=== PATIENT | female | born 1975 ===

== ENCOUNTER 2016-07-01 18:55 | Emergency (ER) | payer SELFPAY ==
[2016-07-01 18:55] VITALS: BMI 23.4
[2016-07-01 19:09] VITALS: BP 112/61; PULSE 77; RESP 18; TEMP 98.1; O2SAT 99
--- NOTE | 2016-07-01 19:32 | C.PDOC ---
History Of Present Illness 40 yr old female presents to the ER stating since April she has had right knee pain. States she hears cracking and is worse with walking. Patient reports she has tried some exercising to relieve the pain but the pain persists. Patient denies trauma, injury, abdominal pain, back pain, change in sensations, weakness or numbness. 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 member ) History/Exam Limitations: language barrier Onset/Duration Of Symptoms: Persistent (Approx 2 months ) Past Medical History Reviewed: Historical Data, Nursing Documentation, Vital Signs Vital Signs: Last Vital Signs Temp 98.1 F 07/01/16 19:06 Pulse 77 07/01/16 19:06 Resp 18 07/01/16 19:06 BP 112/61 07/01/16 19:06 Pulse Ox 99 07/01/16 20:10 Family History: States: No Known Family Hx - Social History Hx Tobacco Use: No Hx Alcohol Use: No Hx Substance Use: No - Immunization History Hx Tetanus Toxoid Vaccination: No Hx Influenza Vaccination: No Hx Pneumococcal Vaccination: No Review Of Systems Except As Marked, All Systems Reviewed And Found Negative. Gastrointestinal: Negative for: Abdominal Pain Musculoskeletal: Positive for: Other ((+) Right knee pain ). Negative for: Back Pain Neurological: Negative for: Weakness, Numbness Physical Exam - Physical Exam Appears: Well, Non-toxic, No Acute Distress Skin: Warm, Dry, No Rash Head: Atraumatic, Normacephalic Eye(s): bilateral: Normal Inspection, EOMI Nose: Normal Oral Mucosa: Moist Chest: Symmetrical Respiratory: No Accessory Muscle Use Extremity: Normal ROM, Tenderness (Right Knee - Tenderness to the medial asoect of the knee, along the meniscus. ), No Calf Tenderness, Capillary Refill (<2 sec ), No Deformity, No Swelling Extremity: Bilateral: Atraumatic, Normal Color And Temperature Pulses: Left Dorsalis Pedis: Normal, Right Dorsalis Pedis: Normal Neurological/Psych: Oriented x3, Normal Speech, Normal Motor, Normal Sensation Gait: Steady ED Course And Treatment O2 Sat by Pulse Oximetry: 99 - Other Rad X-Ray - Right Knee X-Ray: Interpreted by Me, Viewed By Me Interpretation: No fractures. No dislocations. Progress Note: Knee brace applied by biodiesel production technician. Patient advised to follow up with the orthopedist in 1-2 days for further evaluation. Medical Decision Making Medical Decision Making: PLAN: * X-Ray - Right Knee Disposition - Disposition Referrals: at [facility] [Outside] Matteo Goncalves III, MD [Staff Provider] - Disposition: HOME/ ROUTINE Disposition Time: 20:09 Condition: STABLE Additional Instructions: Follow up with your primary medical doctor or clinic in 2-5 days for further evaluation. Return to the emergency department at any time if symptoms persist or worsen. Instructions: Knee Sprain (ED) - Clinical Impression Clinical Impression: Knee pain - PA / ASSOCIATE ATTORNEY / Resident Statement MD/DO has reviewed & agrees with the documentation as recorded. - Scribe Statement The provider has reviewed the documentation as recorded by the Scribe Lexus Porras All medical record entries made by the Scribe were at my direction and personally dictated by me. I have reviewed the chart and agree that the record accurately reflects my personal performance of the history, physical exam, medical decision making, and the department course for this patient. I have also personally directed, reviewed, and agree with the discharge instructions and disposition.
--- NOTE | 2016-07-02 08:18 | RAD ---
PROCEDURE: Right Knee Radiographs. HISTORY: pain COMPARISON: None. FINDINGS: BONES: Normal. No fracture. JOINTS: Normal. No osteoarthritis. JOINT EFFUSION: None. OTHER FINDINGS: None. IMPRESSION: Normal radiographs of the right knee.
== END 2016-07-01 20:24 | disposition home or self-care (01) ==
LOC: C.ER 18:55
DX: M25.561 Pain in right knee (principal)

== ENCOUNTER 2016-11-09 18:53 | Emergency (ER) | payer SELFPAY ==
[2016-11-09 18:54] VITALS: BMI 23.4
[2016-11-09 20:32] VITALS: TEMP 98.1; O2SAT 98
--- NOTE | 2016-11-09 22:40 | CT ---
EXAM: CT Head Without Intravenous Contrast EXAM DATE/TIME: 11/09/2016 9:04 PM CLINICAL HISTORY: 40 years old, female; Condition or disease; Headache; Additional info: Pain TECHNIQUE: Axial computed tomography images of the head/brain without intravenous contrast. All CT scans this facility use one or more dose reduction techniques, viz.: automated exposure control; ma/kV adjustment per patient size (including targeted exams where dose is matched to indication; i.e. head); or iterative reconstruction technique. COMPARISON: No relevant prior studies available. FINDINGS: BRAIN: No significant acute abnormality identified. No acute hemorrhage seen within the brain. No acute extra-axial fluid collections visualized. No evidence of significant mass effect within the brain. Normal blackburn-white matter differentiation. VENTRICLES: No evidence of significant hydrocephalus. BONES/JOINTS: No acute fractures or other acute bony abnormality noted. SOFT TISSUES: No acute abnormality of the visualized soft tissues is seen. SINUSES: Visualized paranasal sinuses appear clear. MASTOID AIR CELLS: Mastoid air cells appear clear. IMPRESSION: - No acute findings seen within the brain. - See above for remaining findings.
[2016-11-09 22:45] VITALS: BP 122/70; PULSE 74; RESP 20
--- NOTE | 2016-11-09 22:46 | C.PDOC ---
History Of Present Illness 40 year old female with a history of migraines presents to the ED with complaints of headache for four days. Patient states the location of this headache is different then her usual migraines - in the back of her head. No relief from OTC medicines. She did not take medicine today. Denies nausea, vomiting, fever, or visual changes. 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 ) History/Exam Limitations: no limitations Onset/Duration Of Symptoms: Days (4 days ) Current Symptoms Are (Timing): Still Present Quality: "Pain" Preceeding Symptoms: None Recent travel outside of the [place]: No Past Medical History Reviewed: Historical Data, Nursing Documentation, Vital Signs Vital Signs: Last Vital Signs Temp 98.1 F 11/09/16 20:26 Pulse 74 11/09/16 22:44 Resp 20 11/09/16 22:44 BP 122/70 11/09/16 22:44 Pulse Ox 98 11/09/16 23:21 Family History: States: Unknown Family Hx - Social History Hx Tobacco Use: No Hx Alcohol Use: Yes Hx Substance Use: No - Immunization History Hx Tetanus Toxoid Vaccination: No Hx Influenza Vaccination: No Hx Pneumococcal Vaccination: No Review Of Systems Constitutional: Negative for: Fever, Chills Eyes: Negative for: Vision Change Cardiovascular: Negative for: Chest Pain, Palpitations Respiratory: Negative for: Cough, Shortness of Breath Gastrointestinal: Negative for: Nausea, Vomiting, Abdominal Pain, Diarrhea Neurological: Positive for: Headache. Negative for: Weakness, Numbness, Dizziness Physical Exam - Physical Exam Appears: Non-toxic, No Acute Distress Skin: Warm, Dry Head: Atraumatic, Normacephalic, No Tenderness, No Swelling, No Abrasion, No Laceration Eye(s): bilateral: Normal Inspection, PERRL, EOMI Ear(s): Bilateral: Normal Nose: Normal, No Discharge Oral Mucosa: Moist Throat: Normal, No Erythema, No Exudate Neck: Normal ROM, Supple ((-) menigismus) Chest: Symmetrical, No Deformity Cardiovascular: Rhythm Regular, No Murmur Respiratory: Normal Breath Sounds, No Rales, No Rhonchi, No Wheezing Gastrointestinal/Abdominal: Soft, No Tenderness, No Distention, No Guarding, No Rebound Neurological/Psych: Oriented x3, Normal Speech, Normal Cognition, Normal Cranial Nerves (2-12 grossly intact), Normal Motor, Normal Sensation, Other (No focal deficits ) Gait: Steady ED Course And Treatment O2 Sat by Pulse Oximetry: 98 (room air ) Progress Note: Head CT was ordered and patient was given Toradol and Reglan. Patient is resting comfortably, is tolerating PO, and no longer has headache, neurologic deficit, photophobia, rash, fever, or nuchal rigidity. Patient was instructed to follow up with physician/clinic in 1-2 days. Disposition - Disposition Referrals: [facility] at [facility] [Outside] Disposition: HOME/ ROUTINE Disposition Time: 22:46 Condition: GOOD Additional Instructions: Vaya a bennett mdico o la clnica en 1-3 [place] sin falta, para mas evaluacin. [place] los medicamentos dewayne indicado. Volver a la sarah de emergencia en cualquier momento si los sntomas persisten o empeoran. Prescriptions: Naproxen [Naprosyn] 1 tab PO BID PRN #20 tab PRN Reason: Pain Instructions: Acute Headache (ED) Forms: [employer] (Bahraini) Print Language: MALAGASY - Clinical Impression Clinical Impression: Headache - PA / LOGISTICS/SHIPPER / Resident Statement MD/DO has reviewed & agrees with the documentation as recorded. - Scribe Statement The provider has reviewed the documentation as recorded by the Scribe Alison Gonzales All medical record entries made by the Scribe were at my direction and personally dictated by me. I have reviewed the chart and agree that the record accurately reflects my personal performance of the history, physical exam, medical decision making, and the department course for this patient. I have also personally directed, reviewed, and agree with the discharge instructions and disposition.
== END 2016-11-09 22:51 | disposition home or self-care (01) ==
LOC: C.ER 18:53
DX: R51 Headache (principal)
CPT/HCPCS: 70450; 96372; 99284; J1885

== ENCOUNTER 2017-01-06 19:13 | Emergency (ER) | payer OTHER ==
[2017-01-06 19:13] VITALS: BMI 23.4
[2017-01-06 19:25] VITALS: RESP 20
[2017-01-06] MEDS ORDERED: Iohexol 240 (50 ml) PO ONE (19:47)
--- NOTE | 2017-01-06 19:49 | C.PDOC ---
History Of Present Illness Patient gave a history of left lower quadrant abdominal pain for 2 weeks. Denies any other symptom. Chief Complaint (Nursing): Abdominal Pain History Per: Patient History/Exam Limitations: no limitations Onset/Duration Of Symptoms: Days Current Symptoms Are (Timing): Still Present Severity: Moderate Pain Scale Rating Of: 3 Location Of Pain/Discomfort: LLQ Radiation Of Pain To:: None Quality Of Discomfort: Aching Associated Symptoms: denies: Fever, Chills, Nausea, Vomiting, Diarrhea, Constipation, Urinary Symptoms Exacerbating Factors: None Alleviating Factors: None Last Bowel Movement: Today Recent travel outside of the [place]: No Past Medical History Vital Signs: Last Vital Signs Temp 98 F 01/06/17 22:57 Pulse 78 01/06/17 22:57 Resp 20 01/06/17 22:57 BP 121/70 01/06/17 22:57 Pulse Ox 99 01/06/17 22:57 - Medical History PMH: No Chronic Diseases Surgical History: No Surg Hx Family History: States: Unknown Family Hx - Social History Hx Tobacco Use: No Hx Alcohol Use: Yes Hx Substance Use: No - Immunization History Hx Tetanus Toxoid Vaccination: No Hx Influenza Vaccination: No Hx Pneumococcal Vaccination: No Review Of Systems Constitutional: Negative for: Fever, Chills, Sweats Cardiovascular: Negative for: Chest Pain, Palpitations, Orthopnea Respiratory: Negative for: Cough, Shortness of Breath, Hemoptysis Gastrointestinal: Positive for: Abdominal Pain. Negative for: Nausea, Vomiting , Diarrhea Genitourinary: Negative for: Dysuria, Frequency, Incontinence, Hematuria, Vaginal Discharge, Vaginal Bleeding Skin: Negative for: Rash Neurological: Negative for: Weakness, Numbness Psych: Negative for: Anxiety, Depression Physical Exam - Physical Exam Appears: Well, Non-toxic, No Acute Distress Skin: Normal Color, Warm, Dry Eye(s): bilateral: Normal Inspection, PERRL, EOMI Nose: Normal Throat: Normal Neck: Normal Chest: Symmetrical, No Deformity, No Tenderness, No Ecchymosis Cardiovascular: Rhythm Regular, No Murmur, No JVD Respiratory: Normal Breath Sounds, No Rhonchi, No Wheezing Gastrointestinal/Abdominal: Soft, Tenderness (Left lower quadrant area), No Organomegaly, No Mass, No Distention, No Guarding, No Rebound, No Hernia Back: Normal Inspection Extremity: Normal ROM ED Course And Treatment - Laboratory Results Result Diagrams: 01/06/17 20:02 01/06/17 20:02 O2 Sat by Pulse Oximetry: 98 Disposition Counseled Patient/Family Regarding: Diagnosis - Disposition Referrals: [facility] [Outside] Disposition: HOME/ ROUTINE Disposition Time: 22:50 Condition: STABLE Prescriptions: Naproxen 375 mg PO TIDPC #20 tablet Instructions: Ovarian Cyst (ED) Forms: Gen Discharge Inst Macanese, [facility] [employer] (Upper Sorbian) Print Language: MARTINIQUAIS - POA Present On Arrival: None - Clinical Impression Clinical Impression: Ovarian cyst, Abdominal pain
[2017-01-06] MEDS ORDERED: Iohexol 240 (50 ml) ONE (19:56)
[2017-01-06 20:10] LABS: BASO % 0.5 % (0.0-2.0); EOS # 0.2 K/uL (0.0-0.7); EOS % 1.7 % (0.0-4.0); HEMATOCRIT 36.9 % (34.0-47.0); LYMPH # 3.5 K/uL (1.0-4.3); LYMPH % 38.8 % (20.0-40.0); MEAN CELL VOLUME 89.6 fL (81.0-99.0); MEAN CORPUSCULAR HEMOGLOBIN 29.3 pg (27.0-31.0); MEAN CORPUSCULAR HGB CONC 32.7 g/dL (33.0-37.0); MEAN PLATELET VOLUME 8.7 fL (7.2-11.7); MONO # 0.7 K/uL (0.0-0.8); MONO % 7.8 % (0.0-10.0); NRBC % 0.1 % (0.0-2.0); RED CELL DISTRIBUTION WIDTH 13.4 % (11.5-14.5); WHITE BLOOD COUNT 8.9 K/uL (4.8-10.8)
[2017-01-06 20:12] LABS: RBC URINE < 1 /hpf (0-3); URINE BACTERIA OCC (<OCC); URINE BILIRUBIN NEGATIVE (NEGATIVE); URINE BLOOD NEGATIVE (NEGATIVE); URINE COLOR Straw (YELLOW); URINE GLUCOSE (UA) NORMAL (Normal); URINE KETONE NEGATIVE (NEGATIVE); URINE LEUKOCYTE ESTERASE NEG Leu/uL (Negative); URINE PROTEIN NEGATIVE (NEGATIVE); URINE UROBILINOGEN NORMAL mg/dL (0.2-1.0); WBC URINE 1 /hpf (0-5)
[2017-01-06 20:21] LABS: ALKALINE PHOSPHATASE 58 U/L (38-126); ALT/SGPT 43 U/L (9-52); AST/SGOT 23 U/L (14-36); BILIRUBIN,TOTAL 0.3 mg/dL (0.2-1.3); BLOOD UREA NITROGEN 13 mg/dL (7-17); CARBON DIOXIDE 25 mmol/L (22-30); CHLORIDE 100 mmol/L (98-107); GFR AFRICAN-AMERICAN > 60; GLUCOSE,RANDOM 80 mg/dL (65-105); POTASSIUM 3.4 mmol/L (3.6-5.2); SODIUM 134 mmol/L (132-148); TOTAL PROTEIN 8.4 g/dL (6.3-8.3)
[2017-01-06 20:27] LABS: ALB/GLOB RATIO 1.1 (1.0-2.1)
--- NOTE | 2017-01-06 22:01 | CT ---
EXAM: CT Abdomen and Pelvis With Intravenous Contrast CLINICAL HISTORY: 41 years old, female; Pain; Abdominal pain; Flank; Left lower quadrant (llq); Additional info: Llq abd pain TECHNIQUE: Axial computed tomography images of the abdomen and pelvis with intravenous contrast. All CT scans at this facility use one or more dose reduction techniques, viz.: automated exposure control; ma/kV adjustment per patient size (including targeted exams where dose is matched to indication; i.e. head); or iterative reconstruction technique. Coronal and sagittal reformatted images were created and reviewed. CONTRAST: 100 mL of OMNIPAQUE 300 administered intravenously. COMPARISON: No relevant prior studies available. FINDINGS: Limitations: Motion artifact - mild. Lower thorax: Probable small hiatal hernia. ABDOMEN: Liver: Unremarkable. No mass. Gallbladder and bile ducts: No calcified stones. No ductal dilation. Pancreas: No ductal dilation. No mass. Spleen: No splenomegaly. Adrenals: No mass. Kidneys and ureters: No mass. No hydronephrosis. Stomach and bowel: Moderate amount of stool within colon. No definite mural thickening. No obstruction. Appendix: Normal caliber. No definite inflammation. PELVIS: Bladder: Unremarkable. Reproductive: 2.3 x 2.2 by 1.8 cm peripherally enhancing hypodensity with crenulated margins within RIGHT ovary. ABDOMEN and PELVIS: Intraperitoneal space: Trace free fluid within pelvis. No free air. Bones/joints: No acute fracture. Soft tissues: Tiny umbilical hernia containing fat. Vasculature: Unremarkable. No aneurysm. Lymph nodes: No pathologically enlarged lymph nodes. IMPRESSION: 1. Involuting or ruptured RIGHT ovarian follicle/cyst. 2. Incidental/non-acute findings are described above.
[2017-01-06 22:58] VITALS: BP 121/70; PULSE 78; TEMP 98
[2017-01-07 00:52] VITALS: O2SAT 98
== END 2017-01-06 22:59 | disposition home or self-care (01) ==
LOC: C.ER 19:13
DX: N83.209 Unspecified ovarian cyst, unspecified side (principal); R10.32 Left lower quadrant pain
CPT/HCPCS: 74177; 80053; 81001; 83690; 84703; 85025; 96374; 99285; J1885; Q9966

== ENCOUNTER 2017-03-13 17:06 | Emergency (ER) | payer OTHER ==
[2017-03-13 17:06] VITALS: BMI 23.4
[2017-03-13 17:12] VITALS: TEMP 98
[2017-03-13 19:48] VITALS: BP 101/62; PULSE 83; RESP 16; O2SAT 98
--- NOTE | 2017-03-13 21:37 | C.PDOC ---
History Of Present Illness 41 y/o female presents to the ER complaining of rectal pain which has been present for 1 month. Patient states that the pain is constant and bowel movements do not change the intensity of the pain. She admits that she is pushing with bowel movement and she is having hard stool. Of note, patient states that she had a normal bowel movement today. Patient denies that she has any rectal bleeding, discharge, and abdominal pain. Patient denies having history of hemorrhoids. Time Seen by Provider: 03/13/17 18:30 Chief Complaint (Nursing): GI Problem History Per: Patient, Family History/Exam Limitations: no limitations Onset/Duration Of Symptoms: Days Current Symptoms Are (Timing): Still Present Severity: Moderate Past Medical History Reviewed: Historical Data, Nursing Documentation, Vital Signs Vital Signs: Last Vital Signs Temp 98.0 F 03/13/17 17:10 Pulse 83 03/13/17 19:48 Resp 16 03/13/17 19:48 BP 101/62 03/13/17 19:48 Pulse Ox 98 03/13/17 21:40 - Medical History PMH: No Chronic Diseases Surgical History: No Surg Hx Family History: States: No Known Family Hx - Social History Hx Tobacco Use: No Hx Alcohol Use: No Hx Substance Use: No - Immunization History Hx Tetanus Toxoid Vaccination: No Hx Influenza Vaccination: No Hx Pneumococcal Vaccination: No Review Of Systems Gastrointestinal: Positive for: Rectal Pain. Negative for: Abdominal Pain Genitourinary: Negative for: Hematuria, Vaginal Discharge Physical Exam - Physical Exam Appears: Non-toxic, No Acute Distress Skin: Normal Color, Warm Head: Atraumatic, Normacephalic Eye(s): bilateral: Normal Inspection, PERRL, EOMI Nose: Normal Oral Mucosa: Moist Neck: Normal, Normal ROM, Supple Chest: Symmetrical Cardiovascular: Rhythm Regular Respiratory: Normal Breath Sounds, No Accessory Muscle Use, No Rales, No Rhonchi , No Wheezing Gastrointestinal/Abdominal: Normal Exam, Soft, No Tenderness Rectal: Rectal Tone, No Blood Streaked Stool, No Hemorrhoids, No Mass, Tenderness (internal rectal tenderness) Extremity: Normal ROM Neurological/Psych: Oriented x3, Normal Speech, Normal Cognition ED Course And Treatment O2 Sat by Pulse Oximetry: 98 Progress Note: Discussed with pt diet changes , follow up with GI for possible scope, and return to ER if symtpoms persist or worsen. Case discussed with Dr Mo, agreeed upon plan and treatment. Disposition - Disposition Referrals: Fredis Garsia MD [Staff Provider] - Disposition: HOME/ ROUTINE Disposition Time: 17:00 Condition: STABLE Additional Instructions: Vaya a bennett mdico o la clnica en 1-3 [place] sin falta, para mas evaluacin. [place] los medicamentos dewayne indicado. Volver a la sarah de emergencia en cualquier momento si los sntomas persisten o empeoran. Prescriptions: Docusate [Colace] 100 mg PO BID #14 cap Hydrocortisone 2.5% (Rectal) [Anusol-HC] 1 applic TOP BID #1 tube Instructions: Rectal Pain (ED) Forms: [employer] (Spanish) Print Language: OMANI - Clinical Impression Clinical Impression: Rectal pain - PA / URINALYSIS TECHNICIAN / Resident Statement MD/DO has reviewed & agrees with the documentation as recorded. - Scribe Statement The provider has reviewed the documentation as recorded by the Scribe Cecily Woodruffq Provider Attestation All medical record entries made by the Scribe were at my direction and personally dictated by me. I have reviewed the chart and agree that the record accurately reflects my personal performance of the history, physical exam, medical decision making, and the department course for this patient. I have also personally directed, reviewed, and agree with the discharge instructions and disposition.
== END 2017-03-13 19:50 | disposition home or self-care (01) ==
LOC: C.ER 17:06
DX: K62.89 Other specified diseases of anus and rectum (principal)

== ENCOUNTER 2017-05-05 07:17 | Day surgery (SDC) | payer OTHER ==
[2017-05-05] MEDS ORDERED: Propofol 10 mg/ml Inj (20 ML) ONE (09:02)
[2017-05-05] MEDS ORDERED: Lidocaine Hydrochloride 5 ML INJ ONE (09:02)
--- NOTE | 2017-05-05 09:05 | CP.SDSHP ---
Same Day Surgery H & P - History Proposed Procedure: colonoscopy Pre-Op Diagnosis: constipation - Previous Medical/Surgical History Comments: None Previous Surgical History: None - Allergies Allergies: Allergies No Known Allergies Allergy (Verified 03/13/17 17:12) - Current Medications Current Medications: none - Physical Exam General Appearance: wdwn nad Vital Signs: Vital Signs 05/05/17 07:48 Temperature 98.3 F Pulse Rate 78 Respiratory 16 Rate Blood Pressure 107/50 L O2 Sat by Pulse 98 Oximetry Mental Status: Alert & Oriented x3 Heart: WNL Lungs: WNL GI: WNL - {Optional Preform as Required} Abdomen: WNL - Impression Impression: constipation Pt. Evaluated Today:Candidate for Anesthesia & Procedure: Yes - Date & Time Date: 05/05/17 Time: 09:05 Short Stay Discharge - Short Stay Discharge Admitting Diagnosis/Reason for Visit: CONSTIPATION Disposition: HOME/ ROUTINE
[2017-05-05 09:07] VITALS: O2SAT 100
[2017-05-05 10:30] VITALS: BP 106/54; PULSE 62; RESP 14; TEMP 97.2
== END 2017-05-05 10:25 | disposition home or self-care (01) ==
LOC: C.ENDO 07:17
PROVIDERS: ATTEND Internal Medicine Gastroenterology
DX: K62.1 Rectal polyp (principal); K59.00 Constipation, unspecified; K64.0 First degree hemorrhoids
CPT/HCPCS: 45385; 84703; 88305; J2704

== ENCOUNTER 2017-07-06 19:28 | Emergency (ER) | payer SELFPAY ==
[2017-07-06 19:28] VITALS: BMI 23.4
[2017-07-06 20:27] VITALS: BP 102/62; PULSE 70; RESP 20; TEMP 98; O2SAT 100
--- NOTE | 2017-07-06 20:55 | C.PDOC ---
History Of Present Illness 41 year old female presents to ED with complaints of left upper back pain for about 4 weeks and 2 week history of sore throat. She states pain is aching and intermittent episodes. She takes Tylenol with relief, but pain has persisted. Denies any fever, injury, numbness, nausea, vomiting, cough, abdominal pain or urinary symptoms. Time Seen by Provider: 07/06/17 20:26 Chief Complaint (Nursing): Back Pain History Per: Patient History/Exam Limitations: no limitations Onset/Duration Of Symptoms: Days, Intermittent Episodes Current Symptoms Are (Timing): Still Present Severity: Mild Past Medical History Reviewed: Historical Data, Nursing Documentation, Vital Signs Vital Signs: Last Vital Signs Temp 98.0 F 07/06/17 20:23 Pulse 70 07/06/17 20:23 Resp 20 07/06/17 20:23 BP 102/62 07/06/17 20:23 Pulse Ox 100 07/06/17 21:55 - Medical History PMH: No Chronic Diseases Surgical History: No Surg Hx Family History: States: Unknown Family Hx - Social History Hx Tobacco Use: No Hx Alcohol Use: No Hx Substance Use: No - Immunization History Hx Tetanus Toxoid Vaccination: No Hx Influenza Vaccination: No Hx Pneumococcal Vaccination: No Review Of Systems Constitutional: Negative for: Fever ENT: Positive for: Throat Pain. Negative for: Ear Pain Cardiovascular: Negative for: Chest Pain, Palpitations Respiratory: Negative for: Cough, Shortness of Breath Gastrointestinal: Negative for: Abdominal Pain Musculoskeletal: Positive for: Back Pain Skin: Negative for: Rash Neurological: Negative for: Headache, Dizziness Physical Exam - Physical Exam Appears: Non-toxic, No Acute Distress Skin: Warm, Dry, No Rash, No Ecchymosis Head: Atraumatic, Normacephalic Eye(s): bilateral: Normal Inspection, EOMI Oral Mucosa: Moist Throat: Erythema (post nasal drip cobblestoning appearance), No Exudate, No Drooling Neck: Normal ROM Chest: Symmetrical Cardiovascular: Rhythm Regular, No Murmur Respiratory: Normal Breath Sounds, No Accessory Muscle Use, No Wheezing Back: Normal Inspection (no rash), No Vertebral Tenderness, No Decreased ROM, Paraspinal Tenderness (mild tenderness to left side thoracic to lumbar area), No Straight Leg Raising Extremity: Bilateral: Atraumatic, Normal ROM Neurological/Psych: Oriented x3, Normal Speech Gait: Steady ED Course And Treatment O2 Sat by Pulse Oximetry: 100 Medical Decision Making Medical Decision Making: Impression: upper back pain and sore throat Plan: * UA * Tylenol * Flexeril Progress: UA shows no leukocytes, or nitrates or blood. Patient re-evaluated and states she still has some pain. Toradol IM ordered. On re-eval patient is now feeling better, she feels comfortable going home. Recommend analgesics for back pain. Explain throat pain may be allergy related and from post nasal drip. Recommend antihistamine Disposition Counseled Patient/Family Regarding: Diagnosis, Need For Followup, Rx Given - Disposition Referrals: [facility] [Outside] Disposition: HOME/ ROUTINE Disposition Time: 21:53 Condition: IMPROVED Additional Instructions: [facility] Apply heat to area 15 minutes three times a day. Take Motrin as needed for pain every 6 hours, with food to not upset stomach. Take Flexeril for muscle pain and spasm, caution can cause drowsiness. Follow up with orthopedic if pain persists over one week. Prescripcin enviada a la farmacia Rey Aplique calor al donita 15 minutos sabas veces al da. [place] Motrin cuando sea necesario para el dolor cada 6 horas, con alimentos para no alterar el estmago. [place] Flexeril para el dolor y el espasmo muscular, la precaucin puede causar somnolencia. Herminio un seguimiento con ortopedia si el dolor persiste kristal christ semana. Prescriptions: Cyclobenzaprine [Cyclobenzaprine HCl] 10 mg PO TID #21 tab Ibuprofen [Motrin] 600 mg PO Q8 #30 tab Instructions: Upper Back Pain (DC) Forms: [employer] (Malaysian) Print Language: CITIZEN OF [place] - POA Present On Arrival: None - Clinical Impression Clinical Impression: Thoracic back pain, Post-nasal drip
[2017-07-06 21:17] LABS: HCG,QUALITATIVE URINE NEGATIVE (NEGATIVE); SQUAMOUS EPITHIAL 2 /hpf (0-5); URINE BACTERIA RARE (<OCC); URINE BILIRUBIN NEGATIVE (NEGATIVE); URINE BLOOD NEGATIVE (NEGATIVE); URINE CLARITY Clear (Clear); URINE COLOR Straw (YELLOW); URINE GLUCOSE (UA) NORMAL (Normal); URINE LEUKOCYTE ESTERASE NEG Leu/uL (Negative); URINE PROTEIN NEGATIVE (NEGATIVE); URINE UROBILINOGEN NORMAL mg/dL (0.2-1.0)
== END 2017-07-06 22:07 | disposition home or self-care (01) ==
LOC: C.ER 19:28
DX: R09.82 Postnasal drip (principal); M54.6 Pain in thoracic spine
CPT/HCPCS: 81001; 84703; 96372; 99284; J1885